=== PATIENT | male | born 1965 | race Caucasian/White ===

== ENCOUNTER → 2017-06-11 | Day surgery (SDC) | payer OTHER, MEDICARE ==
[~2017-06-11] MED LIST: ASPIRIN EC81 M1 PO; DEPO-TESTO200 MG/1 M IM; DIAZEPAM5 M1 PO; MULTI-DAY VITA1 EACH PO; NAPROXEN500 M2 PO; OXYCODONE HCL5 M1 PO; SYNTHROID75 MCG PO; VITAMIN D5000 UNIT PO
--- NOTE | 2017-06-11 11:00 | Operative Report ---
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 He was sedated and placed in lithotomy position. Perianal tissues were prepped and draped. Digital rectal examination was unrevealing. Perianal nerve block was created with a cocktail of local anesthesia. Rigid proctoscopy was performed. There was solitary internal hemorrhoid, grade 2 at right anterior. There is no evidence of active hemorrhage or ulceration. There was a chronic abscess cavity the perianal position radial to the hemorrhoid. The area was after local anesthesia an incision made sharply. The cavity was explored. Granulation tissue was removed with curet. We tried to identify a fistulous tract with lacrimal duct probes but could not do so. At this point we concluded the operation. Sterile dressings were applied. Findings: No evident fistula CC: Rigo JONES,Leilani
== END ==
LOC: STS 02:28
DX: K61.1 Rectal abscess (principal); Z85.030 Personal history of malignant carcinoid tumor of large intestine; Z90.49 Acquired absence of other specified parts of digestive tract; K64.8 Other hemorrhoids; I10 Essential (primary) hypertension; K43.0 Incisional hernia with obstruction, without gangrene; G47.33 Obstructive sleep apnea (adult) (pediatric); K21.9 Gastro-esophageal reflux disease without esophagitis
CPT/HCPCS: J2250